=== PATIENT | male | born 1975 | race African-American/Black ===

== ENCOUNTER 2017-02-14 12:17 | Emergency (ER) | payer SELFPAY ==
[~2017-02-14] VITALS: Ht 172.7 cm; Wt 63.0 kg
[~2017-02-14 12:17] MED LIST: MOME13HF2; PROVENTIL INHALER
[2017-02-14] MEDS ORDERED: PREDNISONE 20MG TABLET PO STA (13:00)
[2017-02-14] MEDS ORDERED: ALBUTEROL (0.083%) 2.5MG/3ML NEB HHN STA (13:00)
[2017-02-14] MEDS ORDERED: IPRATROPIUM BROMIDE (0.02%) 0.5MG/2.5ML NEB HHN STA (13:00)
[2017-02-14 15:58] VITALS: BP 110/64
== END 2017-02-14 16:09 | disposition home or self-care (01) ==
LOC: ER 13:27
DX: J45.901 Unspecified asthma with (acute) exacerbation (principal); F17.210 Nicotine dependence, cigarettes, uncomplicated; Z98.890 Other specified postprocedural states
CPT/HCPCS: 71010; 94640; 99283; J7512; J7611

== ENCOUNTER 2018-08-01 08:14 | Emergency (ER) | payer SELFPAY ==
[~2018-08-01] VITALS: Ht 172.7 cm; Wt 66.0 kg
[2018-08-01] MEDS ORDERED: METHYLPREDNISOLONE SOD SUCC 125 MG/2 ML VIAL IV STA (10:02)
[2018-08-01] MEDS ORDERED: IPRATROPIUM/ALBUTEROL 0.5-3(2.5)MG/3ML NEB ONE (10:03)
[2018-08-01] MEDS ORDERED: IPRATROPIUM/ALBUTEROL 0.5-3(2.5)MG/3ML NEB HHN ONE (10:15)
[2018-08-01 14:14] VITALS: BP 108/64
== END 2018-08-01 14:30 | disposition home or self-care (01) ==
LOC: ER 09:22
DX: J45.901 Unspecified asthma with (acute) exacerbation (principal); R00.1 Bradycardia, unspecified; F17.210 Nicotine dependence, cigarettes, uncomplicated; Z71.6 Tobacco abuse counseling
CPT/HCPCS: 93005; 96374; 99284; 99406; J2930; J7620